=== PATIENT | female | born 1945 | race Caucasian/White ===

== ENCOUNTER 2021-08-29 09:33 | Outpatient (CLI) | payer MEDICARE, SELFPAY ==
--- NOTE | ~2021-08-29 | MR_ITS ---
EXAMINATION: MR hip LT wo con DATE: 08/29/2021 11:02 INDICATION: Trochanteric bursitis at the left hip. TECHNIQUE: Magnetic resonance imaging (MRI) of the left hip was performed without intravenous contra st. Sequences included full-field axial PD-weighted FS FSE and T1-weighted FSE, coronal of the pelvis with PD-weighted FS FSE, small field of view of the left hip with axial PD-weighted FS FSE, sagitta l PD-weighted FS FSE and coronal PD weighted FS FSE. Additional radial T1-weighted FGR oriented ortho gonal to the acetabular rim were obtained for evaluation of the labrum. COMPARISON: None FINDINGS: Bones/labrum/cartilage: Alignment is normal. No fracture, avascular necrosis or pathologic marrow replacing process. Mild os teoarthritis at the left hip with and chondral ulceration resulting in mild partial-thickness cartila ge loss with chondral surface regularity along the margin of the superolateral to posterior aspect of the joint space. No degenerative subchondral changes. There is chronic left labral degeneration with small acetabular marginal osteophytes replacing portions of the superolateral labrum. Fluid: Symmetric physiologic amount of fluid within both hip joints. Soft tissues: There is asymmetric atrophy of the quadriceps musculature of the proximal right thigh and more promin ently of the right tensor fascia alma and proximal right semitendinosus muscle bellies. There is rela tively symmetric fatty atrophy of the bilateral gluteus debra muscles. Fatty atrophy of the bilater al gluteus minimus muscles, severe on the right and moderate on the left. There is additional fatty a trophy of the anteriormost right gluteus medius muscle belly and a portion of the central left gluteu s medius medius muscle belly, the latter with 6 proximal centimeter proximal retraction of the myoten dinous junction from the superolateral facet of the greater trochanter consistent with partial thickn ess tear of the anterior left gluteus medius medius tendon. There is tendinopathy without discrete te ar of the more posterior left gluteus medius tendon. The right gluteus medius and bilateral gluteus m inimus tendons are normal. The bilateral iliopsoas and proximal hamstring tendons are normal. The derrell teja is not identified and has likely been surgically resected. Limited evaluation of visceral organs of the pelvis is otherwise unremarkable. No pathologically enlarged pelvic/inguinal lymphadenopathy. Surgical scar along the midline anterior pelvic wall. IMPRESSION: 1. 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 2. Mild tendinopathy at the posterior left gluteus medius tendon with chronic partial tear of the ant erior aspect of the tendon. 3. Scattered muscular atrophy in the pelvis and proximal thighs is further detailed above. Reviewed, dictated and finalized at location A. [employer] IMPRESSION: 1. Mild left hip osteoarthritis with marginal osteophytes extending into the le ft acetabulum. 2. Mild tendinopathy at the posterior left gluteus medius tendon with chronic p artial tear of the anterior aspect of the tendon. 3. Scattered muscular atrophy in the pelvis and proximal thighs is further deta iled above.
== END 2021-08-29 09:34 | disposition home or self-care (01) ==
LOC: ANHIMG 09:40
PROVIDERS: PCP Family Medicine; Visit Provider Orthopaedic Surgery
DX: M70.62 Trochanteric bursitis, left hip (principal); M16.12 Unilateral primary osteoarthritis, left hip; M76.02 Gluteal tendinitis, left hip; S76.812A Strain of other specified muscles, fascia and tendons at thigh level, left thigh, initial encounter; M62.552 Muscle wasting and atrophy, not elsewhere classified, left thigh
CPT/HCPCS: 73721